=== PATIENT | female | born 1930 | race Caucasian/White ===

== ENCOUNTER 2016-11-20 13:52 | Emergency (ER) | payer MEDICARE, BC ==
--- NOTE | ~2016-11-20 | ER ---
PATIENT'S NAME: OKSANA LOPEZ [facility] AGE: 86 Y [address] ROOM: [place] [address] LOCATION: [facility] ADMIT DATE: 11/20/2016 ER/Outpatient Report DISCHARGE DATE: 11/20/2016 FAMILY PHYSICIAN: Lloyd Carter MD ATTENDING PHYSICIAN: Osbaldo Smith Time of Evaluation: 1415 hours. HISTORY OF PRESENT ILLNESS: The patient is an 86-year-old female, presents with left lower jaw and tooth pain. Swelling started over the last 24 hours. She said she had a fever at home and vomited x1 and felt somewhat short of breath. She has also complained of a headache, which is not unusual for her. She said she has chronic migraines. ALLERGIES: NO MEDICINAL ALLERGIES. CURRENT MEDICATIONS: See copied list, which was reviewed. MEDICAL HISTORY: As far as adult illness, she has a history of breast cancer, coronary artery disease, type 2 diabetes, reflux, diverticulosis, history of a GI bleed, dyslipidemia, peptic ulcer disease. SURGERIES: Include an appendectomy, , colonoscopy, pacemaker implantation, cardiac cath, PTCA with stenting. She has had foot surgery. She has had previous radiation due to her breast cancer. SOCIAL HISTORY: Denies any current use of tobacco or alcohol. She does live alone but has a good support from friends and family. REVIEW OF SYSTEMS: GENERAL: She developed fever today. HEENT: Includes headache, but her big complaint is left lower jaw pain and tooth pain. RESPIRATORY: Feels short of breath, but no productive cough. CARDIOVASCULAR: She has some chest tightness earlier today. GASTROINTESTINAL: Vomited at least once at home. GENITOURINARY: No flank pain. No dysuria. SKIN: No open sores or rash. PATIENT'S NAME: OKSANA LOPEZ [facility] AGE: 86 Y [address] ROOM: [place] [address] LOCATION: [facility] ADMIT DATE: 11/20/2016 ER/Outpatient Report DISCHARGE DATE: 11/20/2016 FAMILY PHYSICIAN: Lloyd Carter MD ATTENDING PHYSICIAN: Osbaldo Smith PHYSICAL EXAMINATION: VITAL SIGNS: Blood pressure was 160/110, at discharge it was 140/70, pulse was 68, respiratory rate 18, temp here was 101.6, it was 99 at discharge. Her O2 sats again 95%. GENERAL APPEARANCE: An elderly female. She is alert and oriented. HEENT: Head: Temporal wasting noted. Eyes: PERRL. Sclerae were clear. Nose: Septum midline. Mouth: Some swelling on the left side of her jaw. It was tender to palpation. She has several teeth that are broken off at the gumline. Some gingival swelling involving the lower molar. LUNGS: Peripherally sounded clear. HEART: She has a pacemaker with no significant murmur. ABDOMEN: Soft, nontender. No CVA tenderness. EXTREMITIES: No clubbing. No pedal edema. SKIN: Showed no presence of rash. Turgor was normal. LABORATORY DATA AND X-RAYS: Her CMS: Glucose 189, calcium was low at 8.4. Her cardiac enzymes were within normal. Magnesium 2.1. troponin was less than 0.040. CBC: White count 12.1, hemoglobin 9.1. PTT was 38, pro-time 19.9, INR was 1.88. Her lactate was 1.4. Procalcitonin was within normal range. Her urine was clear. Did not show any significant infection. Chest x-ray also showed no active infiltrates, some scarring in the right perihilar region. EKG showed a ventricular paced beat. Her procalcitonin was 0.13. ASSESSMENT: 1. Abscessed tooth with fever. 2. Type 2 diabetes mellitus. 3. Coronary artery disease. 4. History of reflux. 5. History of diverticulosis. 6. History of dyslipidemia. 7. History of carcinoma of the breast with status post mastectomy. PLAN: Discussed with Dr. Smith. The patient will be given clindamycin 600 IV. Discharged home with a script for Cleocin 300 mg 3 times a day. Follow up tomorrow with her family doctor if she is not showing any improvement, otherwise, see her dentist on Wednesday. Also return to the emergency room if she has concerns. The patient verbalized understanding of our findings and recommendations and agreed. TOI HOLLIS FOR OSBALDO SMITH DO PATIENT'S NAME: OKSANA LOPEZ [facility] AGE: 86 Y [address] ROOM: [place] [address] LOCATION: [facility] ADMIT DATE: 11/20/2016 ER/Outpatient Report DISCHARGE DATE: 11/20/2016 FAMILY PHYSICIAN: Lloyd Carter MD ATTENDING PHYSICIAN: Osbaldo Smith /[id number] d: 11/20/16 2331 t: 11/23/16 1610, OUTPATIENT REPORT
[~2016-11-20 13:52] MED LIST: ADVIL200 M1 PO; AMARYL4 MG PO; AMBIEN10 MG PO; AUGMENTIN500 MG PO; AVAPRO150 MG PO; CARDIZEM CD (T240 MG PO; CIPRO500 MG PO; COUMADIN **IA1 MG PO; LASIX40 MG PO; NITROGLYCERIN0.2 MG TRANS; PRAVACHOL80 MG PO; PRECOSE50 MG PO; PRILOSEC20 MG PO; ROXICODONE 5MG (5 MG PO; TRADJENTA5 MG PO; TYLENOL EXTRA500 MG PO
[2016-11-20 14:37] LABS: BASOPHIL % 0.2 %; EOSINOPHIL % 0.1 %; HEMATOCRIT 29.5 % (30.0-46.0); HEMOGLOBIN 9.1 g/dL (10.0-15.0); IMMATURE GRANULOCYTE % 0.3 %; LYMPHOCYTE # 1.6 K/uL (0.8-4.0); MCH 25.3 pg (27.0-34.0); MCHC 30.8 gm/dL (32.0-36.5); MCV 81.9 fl (83.0-98.0); MONOCYTE # 0.9 K/uL (0.0-1.0); MONOCYTE % 7.6 %; MPV 9.8 fl (9.4-12.4); NEUTROPHIL # (ANC) 9.5 K/uL (1.8-7.8); NEUTROPHIL % 78.8 %; NRBC % 0 /100WBC (0-0.00); PLATELET COUNT 306 K/uL (150-450); RDW-CV 15.9 % (11.9-14.6); WBC 12.1 K/uL (4.0-11.0)
[2016-11-20 14:47] LABS: INR - (THERAPEUTIC) 1.88 (0.92-1.07); PROTIME 19.9 SECONDS (9.8-11.4); PTT 38 SECONDS (25-32)
[2016-11-20 14:52] LABS: BILIRUBIN URINE NEGATIVE (NEGATIVE); BLOOD URINE 10 /UL (NEGATIVE); GLUCOSE URINE NEGATIVE (NEGATIVE); KETONE URINE NEGATIVE (NEGATIVE); LEUKOCYTES URINE NEGATIVE /UL (NEGATIVE); NITRITE URINE NEGATIVE (NEGATIVE); PROTEIN URINE 30 mg/dL (NEGATIVE); UROBILINOGEN URINE NORMAL (NORMAL)
[2016-11-20 14:57] LABS: ALBUMIN 3.7 gm/dL (3.5-5.0); ALK PHOS 81 IU/L (33-138); ALT 19 IU/L (12-78); ANION GAP 15.2 (10.0-19.0); AST 12 IU/L (10-40); BLOOD UREA NITROGEN 21 mg/dL (6-24); CALCIUM 8.4 mg/dL (8.5-10.5); CHLORIDE 106 mMol/L (96-110); CO2 23 mMol/L (22-32); CPK 30 IU/L (21-215); CREATININE 1.1 mg/dL (0.5-1.1); ESTIMATED GFR (MDRD EQUATION) 47; MAGNESIUM 2.1 mg/dL (1.8-2.6); POTASSIUM 4.2 mMol/L (3.7-5.1); SODIUM 140 mMol/L (135-145); TOTAL BILIRUBIN 0.3 mg/dL (0.0-1.5); TOTAL PROTEIN 6.9 g/dL (6.0-8.4)
[2016-11-20 15:09] LABS: COLOR URINE YELLOW (YELLOW); TURBIDITY URINE CLEAR (CLEAR)
[2016-11-20 15:27] LABS: WBC URINE 0-2 #/HPF (NEGATIVE)
[2016-11-20 15:28] LABS: BACTERIA URINE RARE (NEGATIVE); MUCUS URINE NEGATIVE (NEGATIVE)
== END 2016-11-20 16:18 | disposition disaster alternative care site (69) ==
LOC: GMED 13:52
PROVIDERS: Physician Assistant Medical
DX: K04.7 Periapical abscess without sinus (principal); R50.9 Fever, unspecified; K21.9 Gastro-esophageal reflux disease without esophagitis; E11.9 Type 2 diabetes mellitus without complications; E78.5 Hyperlipidemia, unspecified; R06.02 Shortness of breath; Z98.61 Coronary angioplasty status; Z86.79 Personal history of other diseases of the circulatory system; Z90.10 Acquired absence of unspecified breast and nipple; Z90.49 Acquired absence of other specified parts of digestive tract; Z87.11 Personal history of peptic ulcer disease; Z87.19 Personal history of other diseases of the digestive system; Z95.0 Presence of cardiac pacemaker; Z98.890 Other specified postprocedural states; Z85.3 Personal history of malignant neoplasm of breast; Z79.84 Long term (current) use of oral hypoglycemic drugs; Z79.899 Other long term (current) drug therapy; Z90.12 Acquired absence of left breast and nipple
CPT/HCPCS: J2405